=== PATIENT | male | born 1970 | race Caucasian/White ===

== ENCOUNTER 2022-09-18 08:00 | Outpatient (CLI) | payer OTHER ==
--- NOTE | 2022-09-19 15:31 | XRAY Report ---
PROCEDURE: Chest 2 View X-Ray INDICATIONS: ACUTE CHEST PAIN TECHNIQUE: 2 views of the chest were acquired. COMPARISON: None. FINDINGS: Surgical changes and devices: None. Lungs and pleura: No pleural effusions or pneumothorax. Lungs are clear. Mediastinum: Mediastinal contours are normal. Heart size is normal. Bones and chest wall: Exaggerated thoracic kyphosis with associated chronic-appearing thoracic anteri or wedging. No suspicious bony abnormalities. Soft tissues appear unremarkable. IMPRESSION: No acute cardiopulmonary process demonstrated radiographically. Reviewed by: Filiberto Barreto MD on 09/19/2022 3:30 PM PST Approved by: Filiberto Barreto MD on 09/19/2022 3:30 PM [facility] Station ID: [id number]
== END 2022-09-18 23:59 | disposition home or self-care (01) ==
LOC: DI.S 08:00
PROVIDERS: ATTEND Registered Nurse
DX: R07.89 Other chest pain (principal)

== ENCOUNTER 2023-06-26 15:59 | Outpatient (CLI) | payer OTHER | END 2023-06-26 16:00 | disposition short-term general hospital (02) | LOC: EMS 15:59 | DX: I21.3 ST elevation (STEMI) myocardial infarction of unspecified site (principal) | CPT/HCPCS: A0425; A0427 ==

== ENCOUNTER 2023-07-11 14:18 | Outpatient (CLI) | payer OTHER | END 2023-07-11 14:19 | disposition short-term general hospital (02) | LOC: EMS 14:18 | DX: R07.9 Chest pain, unspecified (principal); R94.31 Abnormal electrocardiogram [ECG] [EKG]; R11.0 Nausea; R61 Generalized hyperhidrosis | CPT/HCPCS: A0425; A0427 ==

== ENCOUNTER 2023-08-28 15:27 | Emergency (ER) | payer OTHER ==
[2023-08-28 15:56] LABS: BASOPHILS # (AUTO) 0.1 10^3/uL (0.0-0.1); BASOPHILS % (AUTO) 0.6 %; EOSINOPHILS # (AUTO) 0.2 10^3/uL (0.0-0.7); EOSINOPHILS % (AUTO) 2.7 %; HCT - HEMATOCRIT 49.4 % (42.0-52.0); HGB - HEMOGLOBIN 16.9 g/dL (14.0-18.0); LYMPHOCYTES # (AUTO) 1.8 10^3/uL (1.5-3.5); LYMPHOCYTES % (AUTO) 22.9 %; MEAN CORPUSCULAR HEMOGLOBIN 31.1 pg (27.0-31.0); MEAN CORPUSCULAR HGB CONC 34.2 g/dL (32.0-36.0); MEAN PLATELET VOLUME 10.1 fL (7.4-11.4); MONOCYTES # (AUTO) 0.8 10^3/uL (0.0-1.0); MONOCYTES % (AUTO) 9.5 %; NEUTROPHILS # (AUTO) 5.1 10^3/uL (1.5-6.6); PLT - PLATELET COUNT 211 10^3/uL (130-450); RED BLOOD COUNT 5.43 10^6/uL (4.70-6.10); RED CELL DISTRIBUTION WIDTH 13.2 % (12.0-15.0); WHITE BLOOD COUNT 7.9 x10^3/uL (4.8-10.8)
[2023-08-28 16:11] LABS: ALBUMIN/GLOBULIN RATIO 1.7 (1.0-2.2); BILIRUBIN,TOTAL 0.8 mg/dL (0.2-1.0); CALCIUM 9.6 mg/dL (8.5-10.3); CREATININE 0.8 mg/dL (0.6-1.3); POTASSIUM 3.8 mmol/L (3.5-4.5)
[2023-08-28 16:15] LABS: TROPONIN I HIGH SENSITIVITY 12.1 ng/L (2.3-19.7)
--- NOTE | 2023-08-28 16:20 | XRAY Report ---
PROCEDURE: Chest 1V INDICATIONS: Chest pain TECHNIQUE: One view of the chest was acquired. COMPARISON: 09/18/2022 FINDINGS: Surgical changes and devices: None. Lungs and pleura: No pleural effusions or pneumothorax. Lungs are clear. Mediastinum: Mediastinal contours appear normal. Heart size is normal. Bones and chest wall: No suspicious bony lesions. Overlying soft tissues appear unremarkable. IMPRESSION: No acute cardiopulmonary process. Reviewed by: Kaela Dupont MD, PhD on 08/28/2023 4:18 PM PST Approved by: Kaela Dupont MD, PhD on 08/28/2023 4:18 PM PST Station ID: [id number]
--- NOTE | 2023-08-28 16:27 | ED Physician Documentation ---
PD HPI CHEST PAIN - Stated complaint Stated Complaint: CHEST PX,PRESSURE - Chief complaint Chief Complaint: Cardiac - History obtained from History obtained from: Patient - Additional information Additional information: The patient comes to the emergency department chief complaint of lower chest pressure under the xiphoid for about the last week with intermittent pain in the lateral left chest on and off for the same time. The patient just had a coronary artery stent placed in his LAD in late June. He states that he had a STEMI at that time and was sent to [place] for this. The patient states he was told that his other 2 "major coronary arteries" were 50% or less occluded, so nothing was done with those at that time. The patient about 2 weeks later had chest pain again and was brought back into the hospital for repeat angiogram at which time he was told that Everything was still looking good. The patient was placed on metoprolol, Cozaar, Lipitor, Jardiance, aspirin, and Brilinta. His stent is also a drug-eluting stent. The patient states that he feels like he has been having some stomach issues from all the medicines he is on and has been taking Pepcid over the last week. He states that the pressure is present all the time, and nothing seems to make it better or worse. He states the sharp pain in his left lateral chest comes on randomly and does not seem to be exace rbated or remitted by anything either. He does not have this constantly. He denies any shortness of breath, nausea, or sweating. He states that he was already scheduled for an event monitor this past week because for the last year, he has been having brief episodes of tachycardia in the midst of what is generally a fairly low heart rate which runs from the mid 40s to the low 50s. The patient states that he has been wearing the event monitor for the past week. He also states that he had an echo shortly after his STEMI which showed an EF of 35 to 40%. He is scheduled for repeat echo on September 13. He states he still feeling the subxiphoid pressure currently but is not having the sharp lateral chest pain. No cough or fevers. No edema in his lower extremities. No other complaints at this time. PD PAST MEDICAL HISTORY - Past Medical History Past Medical History: Yes Cardiovascular: NV - Past Surgical History Past Surgical History: Yes - Present Medications Home Medications: Ambulatory Orders Medication Instructions Recorded Confirmed Atorvastatin Calcium [Lipitor] 80 mg PO DAILY 08/28/23 08/28/23 Empagliflozin [Jardiance] 12.5 mg PO DAILY 08/28/23 08/28/23 Losartan Potassium 25 mg PO DAILY 08/28/23 08/28/23 Metoprolol Succinate [Toprol Xl] 25 mg PO DAILY 08/28/23 08/28/23 Nitroglycerin [Nitrostat] 0.4 mg SL [id number] 08/28/23 08/28/23 Sertraline HCl [Zoloft] 50 mg PO DAILY 08/28/23 08/28/23 Ticagrelor [Brilinta] 90 mg PO BID 08/28/23 08/28/23 - Allergies Allergies/Adverse Reactions: Allergies Allergy/AdvReac Type Severity Reaction Status Date / Time No Known Drug Allergies Allergy Verified 08/28/23 15:32 - Social History Does the pt smoke?: No Smoking Status: Never smoker Does the pt drink ETOH?: No Does the pt have substance abuse?: No - Immunizations Immunizations are current?: Yes PD ED PE NORMAL - Vitals Vital signs reviewed: Yes - General General: Alert and oriented X 3, No acute distress, Well developed/nourished - HEENT HEENT: Atraumatic, PERRL, EOMI, Moist mucous membranes - Neck Neck: Supple, no meningeal sign - Cardiac Cardiac: RRR, No murmur - Respiratory Respiratory: No respiratory distress, Clear bilaterally - Abdomen Abdomen: Soft, Non tender, Non distended - Derm Derm: Normal color, Warm and dry, No rash - Extremities Extremities: No deformity, No edema, No calf tenderness / cord - Neuro Neuro: Alert and oriented X 3 - Psych Psych: Normal mood, Normal affect Results - Vitals Vitals: Vital Signs - 24 hr 08/28/23 08/28/23 08/28/23 15:32 16:00 16:30 Temperature 36.5 C Heart Rate 56 L 58 L 56 L Respiratory 18 13 16 Rate Blood Pressure 157/90 H 135/92 H 131/89 H O2 Saturation 99 99 98 08/28/23 08/28/23 08/28/23 17:00 17:30 18:05 Temperature Heart Rate 54 L 54 L 51 L Respiratory 14 15 12 Rate Blood Pressure 127/83 H 125/77 122/79 O2 Saturation 98 98 97 Oxygen O2 Source Room air - EKG (time done) 1533 EKG releavant findings:: EKG personally interpreted by author of this note. Relevant findings are: Rate: Rate (enter#) (55) Rhythm: NSR [place]: LAD Intervals: Normal [place] QRS: Normal Ischemia: Normal ST segments Compare to prior EKG: Old EKG unavailable Computer interpretation: Agree with computer - Labs Labs: Laboratory Tests 08/28/23 08/28/23 08/28/23 15:45 15:45 17:37 WBC 7.9 RBC 5.43 Hgb 16.9 Hct 49.4 MCV 91.0 MCH 31.1 H MCHC 34.2 RDW 13.2 Plt Count 211 MPV 10.1 Neut # (Auto) 5.1 Lymph # (Auto) 1.8 [place] # (Auto) 0.8 Eos # (Auto) 0.2 Baso # (Auto) 0.1 Absolute Nucleated RBC 0.00 Nucleated RBC % 0.0 Sodium 137 Potassium 3.8 Chloride 103 Carbon Dioxide 23 Anion Gap 11.0 BUN 14 Creatinine 0.8 Estimated GFR (MDRD) 102 Glucose 105 H Calcium 9.6 Total Bilirubin 0.8 AST 20 ALT 28 Alkaline Phosphatase 80 Troponin I High Sens 12.1 12.5 Total Protein 8.0 Albumin 5.0 Globulin 3.0 Albumin/Globulin Ratio 1.7 Lipase 87 H PD Medical Decision Making - ED course Complexity details: reviewed old records, reviewed results, re-evaluated patient, considered differential, d/w patient, d/w family ED course: The patient had significant recent cardiac intervention, but on the other hand, his repeat angiogram it sounded like had been reassuring. I discussed with the patient and his significant other that at this point, the best plan is to do serial troponins and make sure he has not had a new event. His current EKG is reassuring, though does show the aftereffects of previous ischemia/infarct. The patient's serial troponins were both found to be in the 12's and without significant change. I felt patient was stable for discharge home. We have discussed that there are many potential causes for chest pain and that at this point in time, there is no evidence of an emergent cause. We have discussed the need for close follow-up with cardiology in this immediate post stent/post STEMI period. Discussed usual indications for return. Departure - Departure Disposition: 01 Home, Self Care Clinical Impression: Chest pain Qualifiers: Chest pain type: unspecified Qualified Code(s): R07.9 - Chest pain, unspecified Condition: Stable Instructions: ED Chest Pain Atypical Unkn Cause Comments: Your test tonight look good, including blood work, EKG, and chest x-ray. Your troponins are both well within normal and not significantly changed from 1 another. Given that you recently had an angiogram with no evidence of development of critical lesions, your pain is most likely from something else. 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 If you develop severe chest pain with shortness of breath, nausea, and/or sweating, please return to the emergency department. If you feel that taking all of your medications at the same time is causing issues, you may try taking the Lipitor and aspirin at night if you wish. Forms: PCP List Discharge Date/Time: 08/28/23 18:41
[2023-08-28 18:17] VITALS: BP 122/79; O2SAT 97
== END 2023-08-28 18:41 | disposition home or self-care (01) ==
LOC: ED 15:27
DX: R07.9 Chest pain, unspecified (principal)
CPT/HCPCS: 36415; 80053; 83690; 84484; 85025; 93005; 99283; 99284